=== PATIENT | female | born 1995 | race Caucasian/White ===

== ENCOUNTER → 2019-10-02 10:30 | Outpatient (BNVA) | payer OTHER, SELFPAY | PROVIDERS: Family Provider Pediatrics Adolescent Medicine; PCP Pediatrics Adolescent Medicine; Visit Provider Nurse Practitioner Women's Health | DX: Z30.011 Encounter for initial prescription of contraceptive pills (principal); N91.3 Primary oligomenorrhea | CPT/HCPCS: 88175 ==

== ENCOUNTER 2020-10-28 12:00 | Outpatient (CLI) | payer OTHER, SELFPAY | END 2020-10-28 12:01 | disposition home or self-care (01) | LOC: SLEEP 10-29 13:03 | PROVIDERS: Family Provider Pediatrics Adolescent Medicine; PCP Pediatrics Adolescent Medicine; Visit Provider Family Medicine | DX: G47.33 Obstructive sleep apnea (adult) (pediatric) (principal); G44.209 Tension-type headache, unspecified, not intractable; G43.909 Migraine, unspecified, not intractable, without status migrainosus | CPT/HCPCS: G0399 ==

== ENCOUNTER 2021-06-21 07:28 | Emergency (ER) | payer OTHER, SELFPAY ==
[2021-06-21 07:45] VITALS: BP 170/128; PULSE 119; RESP 18; TEMP 36.7; O2SAT 97; BMI 40.7
--- NOTE | 2021-06-21 07:48 | ECG_ITS ---
[facility] Test Date: 2021-06-21 Pat Name: Rose Manning Department: Room: Gender: Female Register [employer]eds: : 1995 Requested By: Baljinder Altamirano Order Number: [id number] Robina MD: Nela Lara M.D. Measurements Intervals [place] Rate: 102 P: 58 WV: 144 QRS: 92 QRSD: 94 T: 29 QT: 341 QTc: 445 Interpretive Statements SINUS TACHYCARDIA BORDERLINE RIGHT AXIS DEVIATION [QRS AXIS > 90] ABNORMAL RHYTHM ECG No previous ECG available for comparison Electronically Signed On 06-21-2021 17:03:49 BOARDER MACHINE by Nela Lara M.D. [email or web address] hospitalFortumo/store/[id number]
--- NOTE | 2021-06-21 07:55 | ECG_ITS ---
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
--- NOTE | 2021-06-21 07:55 | XRR_ITS ---
PROCEDURE INFORMATION: Exam: XR Chest Exam date and time: 06/21/2021 7:55 AM Age: 25 years old Clinical indication: Angina pectoris; Patient HX: --rt arm pain since last night & PT states the pain progressed to her chest this am; Additional info: Chest pain TECHNIQUE: Imaging protocol: XR of the chest. Views: 1 view. COMPARISON: No relevant prior studies available. FINDINGS: Lungs: Unremarkable. No consolidation. Pleural spaces: Unremarkable. No pleural effusion. No pneumothorax. Heart/Mediastinum: Unremarkable. No cardiomegaly. Bones/joints: Unremarkable. XR/XR chest 1V portable [id number] IMPRESSION: No acute findings.
--- NOTE | 2021-06-21 07:55 | W.ED.CHESTPA ---
HPI - Chest Pain General: Chief Complaint: Chest Pain Stated Complaint: Woke up with sharp arm pain now in chest area Time Seen by Provider: 06/21/21 07:36 Source: patient Mode of arrival: ambulatory Limitations: no limitations History of Present Illness: 25-year-old female reports left-sided chest pain radiating to her left arm upper arm only. She did not have any diaphoresis or dyspnea with that. She woke up with the discomfort she is not noticing thing that makes it better or worse. She denies hematochezia and melena hematemesis or coffee-ground emesis. No shortness of breath cough fever sweats chills. MD complaint: chest pain Onset (ago): hour(s) Timing of current episode: episodic Prior episodes: No Onset: during rest Pain location: left chest Pain radiation: left arm Severity: moderate Quality: tightness and aching Relieving factors: nothing Exacerbating factors: nothing Associated symptoms: Deny abdominal pain, diaphoresis, dyspnea, fever(s), leg edema, nausea, palpitations, sense of impending doom, syncope or vomiting Treatment prior to arrival: none Review of Systems Const: Denies: fever(s) or diaphoresis ENMT: Denies: throat pain, ear or mastoid pain, nasal discharge or nasal congestion Card: Reports: chest pain; Denies: palpitations or syncope Resp: Denies: dyspnea, wheezing or chest congestion GI: Denies: abdominal pain, nausea or vomiting : Denies: flank pain, difficulty voiding, dysuria, urinary frequency or urinary urgency Skin/Breast: Denies: rash or pruritus PFS ED PFSH: Medical History No pertinent past medical history Surgical History H/O foot surgery Right-- 1--2015 2--2017 H/O wisdom tooth extraction Family History Grandmother Diabetes Maternal grandmother Mother Family history of thyroid problem Denies family history of Colon cancer Ovarian cancer Heart disease Hyperlipidemia Breast cancer Hypertension Uterine cancer Stroke Social History Additional social history: - Tobacco use: Denies, never smoked Alcohol use: Denies Drug use: Denies Physical Exam Const: COMMON NORMALS: no acute distress and patient oriented x3 GENERAL APPEARANCE: cooperative, comfortable and well kempt NUTRITIONAL APPEARANCE: obese ORIENTATION/CONSCIOUSNESS: Yes awake, Yes oriented to person, Yes oriented to place and Yes oriented to time HENMT: COMMON NORMALS: normocephalic, atraumatic, hearing grossly normal bilaterally, EAC's normal, TM's normal bilaterally and Normal external nose present HEAD & SCALP: normocephalic and atraumatic NOSE: Normal external nose present EXTERNAL AUDITORY CANAL: EAC's normal TYMPANIC MEMBRANE: TM's normal bilaterally MOUTH: Normal oral and palatal mucosa present, lip normal and tongue normal THROAT: posterior oropharynx normal and tonsils normal Eye: COMMON NORMALS: Equal, round and reactive pupils present, EOMs intact bilaterally, conjunctivae normal and no scleral icterus CONJUNCTIVA: Yes conjunctivae normal PUPIL: Yes Equal, round and reactive pupils present Neck/C-Spine: COMMON NORMALS: no meningeal signs, no JVD and Thyroid normal THYROID: Thyroid normal and asymmetrical Lymph: LYMPHATIC: no lymphadenopathy noted Resp: COMMON NORMALS: normal respiratory effort, No retractions, No use of accessory muscles and clear to auscultation bilaterally AUSCULTATION: clear to auscultation bilaterally Cardio: COMMON NORMALS: no JVD, regular rate, regular rhythm and No murmurs present (Cardio) RATE: regular rate RHYTHM: regular rhythm HEART SOUNDS: no murmurs GI: COMMON NORMALS: Soft to palpation and No hepatosplenomegaly present AUSCULTATION: Yes normoactive bowel sounds PALPATION: Yes Soft to palpation, No Tenderness to palpation present (GI), No Guarding due to palpation present (GI) and Yes No hepatosplenomegaly present : COMMON NORMALS: Yes no CVA tenderness BLADDER/KIDNEY EXAM: Yes no CVA tenderness Back/Pelvis: COMMON NORMALS: no CVA tenderness LUMBAR SPINE/LOWER BACK: Yes normal to inspection Extremity: COMMON NORMALS: normal to inspection, capillary refill normal, no clubbing, cyanosis or edema, no calf tenderness and no pedal edema Neuro: COMMON NORMALS: patient oriented x3 SENSORIUM/ORIENTATION: Yes oriented to person, Yes oriented to place and Yes oriented to time MENINGEAL SIGNS: Yes no meningeal signs Psych: APPEARANCE: Yes well kempt Skin: COMMON NORMALS: no rashes or lesions noted GENERAL SKIN EXAM: no rashes or lesions noted Course Vital Signs: Vital signs: Vital Signs Temperature 98.1 F 06/21/21 07:45 Pulse Rate 81 06/21/21 11:20 Respiratory Rate 14 06/21/21 11:20 Blood Pressure 124/84 06/21/21 11:20 Pulse Oximetry 98 06/21/21 11:20 MDM - Chest Pain Medical Decision Making EKG and troponins negative. Suspect this is GI related started on still Carafate and omeprazole set up for stress test return past problems Medical Records I reviewed the patient's medical records. Lab Data I reviewed the patient's lab results. : 06/21/21 09:10 06/21/21 08:00 Radiology Impressions Chest X-Ray 06/21/21 07:55 IMPRESSION: No acute findings. Laboratory Results WBC 5.5 10^3/uL (4.0-10.0) 06/21/21 09:10 Corrected WBC Cancelled 06/21/21 08:00 RBC 4.65 10^6/uL (4.1-5.3) 06/21/21 09:10 Hgb 13.0 g/dL (11.5-15.3) 06/21/21 09:10 Hct 38.7 % (37.0-47.0) 06/21/21 09:10 MCV 83.2 fl (81-99) 06/21/21 09:10 MCH 28.0 pg (28.0-34.0) 06/21/21 09:10 MCHC 33.6 g/dL (30.0-36.0) 06/21/21 09:10 RDW 13.2 % (12.1-15.1) 06/21/21 09:10 Plt Count 216 10^3/cmm (130-400) 06/21/21 09:10 MPV 8.5 fL (7.4-10.4) 06/21/21 09:10 Gran % Cancelled 06/21/21 08:00 Neut % (Auto) 72.0 % 06/21/21 09:10 Lymph % (Auto) 21.7 % 06/21/21 09:10 [place] % (Auto) 4.9 % 06/21/21 09:10 Eos % (Auto) 0.7 % 06/21/21 09:10 Baso % (Auto) 0.5 % 06/21/21 09:10 Neut # (Auto) 3.95 10^3/uL (1.8-7.7) 06/21/21 09:10 Lymph # (Auto) 1.2 10^3/uL (0.8-4.8) 06/21/21 09:10 [place] # (Auto) 0.3 10^3/uL (0.2-0.9) 06/21/21 09:10 Eos # (Auto) 0.0 10^3/uL (0.0-0.8) 06/21/21 09:10 Baso # (Auto) 0.0 10^3/uL (0.0-0.1) 06/21/21 09:10 Absolute Gran (auto) Cancelled 06/21/21 08:00 Nucleated RBC % (auto) 0 % 06/21/21 09:10 Nucleated RBCs # 0.0 /100WBC 06/21/21 09:10 D-Dimer 0.36 ug/mIFEU (0-0.59) 06/21/21 09:10 Sodium 138 mmol/L (136-145) 06/21/21 08:00 Potassium 4.0 mmol/L (3.5-5.1) 06/21/21 08:00 Chloride 101 mmol/L (98-107) 06/21/21 08:00 Carbon Dioxide 23 mmol/L (22-29) 06/21/21 08:00 Anion Gap 18.0 (5-19) 06/21/21 08:00 BUN 9 mg/dL (6-20) 06/21/21 08:00 Creatinine 0.9 mg/dL (0.5-0.9) 06/21/21 08:00 GFR Calculation 76.3 mL/min (90-130) L 06/21/21 08:00 Glucose 119 mg/dL (65-115) H 06/21/21 08:00 Calculated Osmolality 286 mOsm/kg (285-295) 06/21/21 08:00 Calcium 9.4 mg/dL (8.5-10.5) 06/21/21 08:00 Total Bilirubin 0.2 mg/dL (0.15-1.2) 06/21/21 08:00 AST 12 U/L (0-32) 06/21/21 08:00 ALT 19 U/L (0-33) 06/21/21 08:00 Alkaline Phosphatase 67 IU/L (35-105) 06/21/21 08:00 Troponin T Baseline 6 ng/L (0-10) 06/21/21 08:00 Troponin T 120 Minute 6.00 ng/L (0-10) 06/21/21 10:01 Delta Troponin T 0 ABS# (0-10) 06/21/21 10:01 Total Protein 7.3 g/dL (6.6-8.7) 06/21/21 08:00 Albumin 4.4 g/dL (3.5-5.2) 06/21/21 08:00 Globulin 2.9 g/dL (1.3-4.6) 06/21/21 08:00 Discharge Plan Discharge Patient Disposition: Home Clinical Impression: Atypical chest pain Condition: Stable Prescriptions: New omeprazole 20 mg capsule,delayed release(DR/EC) 20 mg PO DAILY Qty: 30 0RF No Action ibuprofen 800 mg tablet See Rx Instructions .ROUTE .COMPLEX 0RF Rx Instructions: 800MG PO ONSET OF HEADACHE MAY REPEAT UP TO TID amitriptyline 25 mg tablet 25 mg PO BEDTIME 0RF melatonin 5 mg Tablet 5 - 10 mg PO BEDTIME PRN (Reason: Sleep) 0RF 1.5/30 (28) 1.5 mg-30 mcg (21)/75 mg (7) tablet 1 tab PO BEDTIME 0RF Discharge Orders: Discharge ED (Routine); Ordered 06/21/21 Ordered By: Baljinder Yuan Referrals: Luz Marina Casiano MD [Primary Care Provider] - Discharge Diet: Usual diet Discharge Activity: Resume usual activity Patient Instructions: Opioid Safety Activity Restrictions/Additional Instructions: international marketing manager will make arrangements for a Marilee sestamibi stress test Coding Level of Care Code ED Infant Childcare Provider for Annyg Fwd Exam Comprehensive
[2021-06-21] MEDS: amlodipine 10 mg Tablet PO (08:01)
[2021-06-21] MEDS: aspirin 81 mg Chew Tablet 324 MG PO (08:01)
[2021-06-21 08:02] VITALS: BP 147/102; PULSE 107; RESP 14; O2SAT 98
[2021-06-21] MEDS: labetalol 5 mg/mL SDV 20mL 10 MG IVP (08:07)
[2021-06-21 08:42] LABS: Alanine Aminotransferase 19 U/L (0-33); Albumin Level 4.4 g/dL (3.5-5.2); Alkaline Phosphatase 67 IU/L (35-105); Aspartate Amino Transferase 12 U/L (0-32); Blood Urea Nitrogen 9 mg/dL (6-20); Calcium 9.4 mg/dL (8.5-10.5); Carbon Dioxide 23 mmol/L (22-29); Chloride 101 mmol/L (98-107); Globulin 2.9 g/dL (1.3-4.6); Glomerular Filtration Rate 76.3 mL/min (90-130); Glucose 119 mg/dL (65-115); Osmolality Calculated 286 mOsm/kg (285-295); Sodium 138 mmol/L (136-145); Total Bilirubin 0.2 mg/dL (0.15-1.2); Total Protein 7.3 g/dL (6.6-8.7)
[2021-06-21 08:44] LABS: Troponin(5th) Baseline 6 ng/L (0-10)
[2021-06-21 09:18] LABS: Basophils % 0.5 %; Eosinophils % 0.7 %; Hematocrit 38.7 % (37.0-47.0); Lymphocytes # 1.2 10^3/uL (0.8-4.8); Lymphocytes % 21.7 %; Mean Corpuscular HGB Conc 33.6 g/dL (30.0-36.0); Mean Corpuscular Volume 83.2 fl (81-99); Mean Platelet Volume 8.5 fL (7.4-10.4); Monocytes # 0.3 10^3/uL (0.2-0.9); Monocytes % 4.9 %; Neutrophils # 3.95 10^3/uL (1.8-7.7); Nucleated Red Blood Cells % 0 %; Platelet Count 216 10^3/cmm (130-400); Red Blood Count 4.65 10^6/uL (4.1-5.3); Red Cell Distribution Width 13.2 % (12.1-15.1); White Blood Count 5.5 10^3/uL (4.0-10.0)
[2021-06-21 09:35] LABS: D Dimer 0.36 ug/mIFEU (0-0.59)
[2021-06-21 09:40] VITALS: BP 140/94; PULSE 90; RESP 18; O2SAT 94
--- NOTE | 2021-06-21 09:55 | ECG_ITS ---
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 Measurements Intervals [place] Rate: 84 P: 62 MS: 166 QRS: 89 QRSD: 94 T: 41 QT: 358 QTc: 424 Interpretive Statements SINUS RHYTHM Compared to ECG 06/21/2021 07:51:45 Sinus tachycardia no longer present Electronically Signed On 06-21-2021 17:20:05 COUNTRY DIRECTOR by Nela Lara M.D. [email or web address] oaksVentureNet Capital Groupmartins ferry hospitalPSS [email or web address]/store/[id number]
[2021-06-21 10:48] LABS: Troponin 5 2HR Delta 0 ABS# (0-10)
[2021-06-21 11:20] VITALS: BP 124/84; PULSE 81; RESP 14; O2SAT 98
--- NOTE | 2021-06-22 10:10 | DCPLANNER ---
Addendum entered by Katelyn Daley 08/26/21 20:02: ict development manager was notified that patients insurance denied the request for a stress test. Original Note: ict development manager had message to schedule an outpatient stress test for patient. ict development manager emailed signed order to Lilian at centralized scheduling. Centralized scheduling will call patient with appointment information.
== END 2021-06-21 11:22 | disposition home or self-care (01) ==
PROVIDERS: Emergency Provider Family Medicine; PCP Pediatrics Adolescent Medicine
DX: R07.89 Other chest pain (principal)
CPT/HCPCS: 36415; 71045; 80053; 84484; 85025; 85378; 93005; 96374; 99284; J3490

== ENCOUNTER → 2021-08-09 19:08 | Outpatient (BNVA) | payer OTHER, SELFPAY | PROVIDERS: PCP Pediatrics Adolescent Medicine; Visit Provider Registered Nurse Neonatal Intensive Care | DX: N39.0 Urinary tract infection, site not specified (principal) | CPT/HCPCS: 81000 ==

== ENCOUNTER → 2022-01-02 13:14 | Outpatient (BNVA) | payer OTHER, SELFPAY | PROVIDERS: PCP Pediatrics Adolescent Medicine | DX: R39.9 Unspecified symptoms and signs involving the genitourinary system (principal); N39.0 Urinary tract infection, site not specified | CPT/HCPCS: 81000 ==

== ENCOUNTER → 2022-10-28 09:00 | Outpatient (BNVA) | payer OTHER, SELFPAY | PROVIDERS: PCP Family Medicine; Visit Provider Nurse Practitioner Women's Health | DX: N91.5 Oligomenorrhea, unspecified (principal); Z12.4 Encounter for screening for malignant neoplasm of cervix | CPT/HCPCS: 82306; 84146; 84402; 84443; 84702; 88175 ==

== ENCOUNTER → 2022-12-23 15:27 | Outpatient (BNVA) | payer OTHER, SELFPAY | PROVIDERS: PCP Family Medicine; Visit Provider Nurse Practitioner Women's Health | DX: N92.6 Irregular menstruation, unspecified (principal) | CPT/HCPCS: 84702 ==

== ENCOUNTER → 2023-02-20 15:00 | Outpatient (BNVA) | payer OTHER, SELFPAY | PROVIDERS: PCP Family Medicine; Visit Provider Obstetrics & Gynecology | DX: N91.5 Oligomenorrhea, unspecified (principal) | CPT/HCPCS: 84144 ==

== ENCOUNTER → 2023-05-11 09:19 | Outpatient (BNVA) | payer OTHER, SELFPAY | PROVIDERS: PCP Family Medicine; Visit Provider Family Medicine | DX: R51.9 Headache, unspecified (principal) | CPT/HCPCS: 85651 ==

== ENCOUNTER → 2023-09-04 15:29 | Outpatient (BNVA) | payer OTHER, SELFPAY | PROVIDERS: PCP Family Medicine; Visit Provider Nurse Practitioner Women's Health | DX: Z31.9 Encounter for procreative management, unspecified (principal) | CPT/HCPCS: 86762; 86787 ==

== ENCOUNTER → 2023-09-25 15:15 | Outpatient (BNVA) | payer OTHER, SELFPAY | PROVIDERS: PCP Family Medicine; Visit Provider Nurse Practitioner Women's Health | DX: N93.9 Abnormal uterine and vaginal bleeding, unspecified (principal); N83.292 Other ovarian cyst, left side | CPT/HCPCS: 76830 ==

== ENCOUNTER → 2023-10-19 10:00 | Outpatient (BNVA) | payer OTHER, SELFPAY | PROVIDERS: PCP Family Medicine; Visit Provider Nurse Practitioner Women's Health | DX: E28.2 Polycystic ovarian syndrome (principal) | CPT/HCPCS: 84144 ==